=== PATIENT | male | born 1980 | race Asian ===

== ENCOUNTER 2021-03-05 15:38 | Emergency (ER) | payer OTHER ==
[~2021-03-05] VITALS: Ht 157.5 cm; Wt 71.8 kg
[2021-03-05] MEDS ORDERED: methylPREDNISolone SOD SUCC PF 125 MG/2 ML VIAL. IM ONE (16:15)
--- NOTE | 2021-03-05 16:20 | PHYS DOC ---
Past Medical History Past Surgical History: No Surgical History (ROSIE MESSINA APRN) General Adult EDM: Chief Complaint: SKIN RASH/ABSCESS HPI: HPI: Patient is a 41 year old male who presents with 4 days of contact dermatitis to the right face around her eyes swollen and reddened with some burning. He states he can see out of the right eye itself. The eye is very swollen. He als o has a contact dermatitis rash to left side of the neck onto the top of the shoulder. He went to the doctor yesterday and they gave him Zyrtec and a prednisone taper. Patient states that he is not better and the doctor told him yesterday that he should be much better. Patient states he still very itchy and is burning. He denies fever, discharge from the eye, vision loss, headache, fever, shortness of breath, wheezing, chest pain, nausea, vomiting, diarrhea. (ROSIE MESSINA APRN) Review of Systems: Review of Systems: Constitutional: Denies fever or chills. [] Eyes: Denies change in visual acuity. [] HENT: Denies nasal congestion or sore throat. +Right eye redness[] Respiratory: Denies cough or shortness of breath. [] Cardiovascular: Denies chest pain or + right eye edema. [] GI: Denies abdominal pain, nausea, vomiting, bloody stools or diarrhea. [] : Denies dysuria. [] Musculoskeletal: Denies back pain or joint pain. [] Integument: Denies rash. + Contact dermatitis rash to left neck and shoulder. + Right eye redness [] Neurologic: Denies headache, focal weakness or sensory changes. [] Endocrine: Denies polyuria or polydipsia. [] Lymphatic: Denies swollen glands. [] Psychiatric: Denies depression or anxiety. [] (ROSIE MESSINA APRN) Heart Score: C/O Chest Pain: No (ROSIE MESSINA APRN) Current Medications: Current Medications Medications (Trade) Dose Ordered Sig/Aury Start Time Stop Time Status Last Admin Dose Admin Methylprednisolone Sodium Succinate (SOLU-Medrol 125MG VIAL) 125 mg 1X ONCE 03/05/21 16:15 03/05/21 16:16 UNV (ROSIE MESSINA APRN) Allergies: Allergies: Allergies Coded Allergies Type Severity Reaction Last Updated Verified No Known Drug Allergies 03/05/21 No (ROSIE MESSINA APRN) Physical Exam: PE: Constitutional: Well developed, well nourished, no acute distress, non-toxic appearance. [] HENT: Normocephalic, atraumatic, bilateral external ears normal, oropharynx moist, no oral exudates, nose normal. Right eye swelling with redness. [] Eyes: PERRLA, EOMI, conjunctiva normal, no discharge. [] Neck: Normal range of motion, no tenderness, supple, no stridor. [] Cardiovascular:Heart rate regular rhythm, no murmur [] Lungs & Thorax: Bilateral breath sounds clear to auscultation [] Abdomen: Bowel sounds normal, soft, no tenderness, no masses, no pulsatile masses. [] Skin: Warm, dry, no erythema, no rash. Contact dermatitis to left neck [] Back: No tenderness, no CVA tenderness. [] Extremities: No tenderness, no cyanosis, no clubbing, ROM intact, no edema. [] Neurologic: Alert and oriented X 3, normal motor function, normal sensory function, no focal deficits noted. [] Psychologic: Affect normal, judgement normal, mood normal. [] (ROSIE MESSINA APRN) Current Patient Data: Vital Signs: Vital Signs Date Time Temp Pulse Resp B/P (MAP) Pulse Ox O2 Delivery O2 Flow Rate FiO2 03/05/21 15:40 97.8 108 16 119/73 (88) 97 Room Air 97.8 (ROSIE MESSINA APRN) EKG: EKG: [] (ROSIE MESSINA APRN) Radiology/Procedures: Radiology/Procedures: [] Impression: [facility] [address] [place] [address] IMAGING REPORT Signed PATIENT: ZAC ROSS ACCOUNT: [id number] : 1980 LOCATION: ER AGE: 41 SEX: M EXAM STATUS: REG ER ORD. PHYSICIAN: ROSIE MESSINA APRN REASON: orbital cellulitis PROCEDURE: CT ORBITS W/CONTRAST EXAMINATION: CT ORBITS/SELLA WITH IV CONTRAST INDICATION:41 years, Male, orbital cellulitis. COMPARISON: None. TECHNIQUE: CT of the maxillofacial region was performed following intravenous administration of contrast. Sagittal and coronal reconstructions were performed. One or more of the following dose reduction techniques were utilized: Automated exposure control (AEC), Adjustment of mA and/or kV according to patient size, Use of iterative reconstruction technique such as ASiR, CT scan done according to ALARA and image gently/image wisely FINDINGS: Right preseptal soft tissue swelling extends into the supraorbital, infraorbital and right zygomatic soft tissue. No located fluid collection to suggest abscess. The orbits and globes are intact with no postseptal involvement. No bone erosion or periosteal reaction. Mild mucosal thickening in maxillary sinuses. Remaining visualized paranasal sinuses are well-aerated. No significant periodontal disease. No acute osseous abnormalities are detected. The temporomandibular joints demonstrate normal alignment. The visualized mastoid air cells are clear. The visualized portions of the parotid glands are normal. The visualized aerodigestive tract is unremarkable. The visualized brain parenchyma is normal in attenuation. IMPRESSION: Right preseptal cellulitis extends to the supraorbital, infraorbital and right zygomatic soft tissue. Electronically signed by: Juan Carlos Escalante MD (03/05/2021 5:52 PM) [facility] DICTATED and SIGNED BY: JUAN CARLOS ESCALANTE MD DATE: 03/05/21 [id number] (ROSIE MESSINA APRN) Course & Med Decision Making: Course & Med Decision Making Pertinent Labs and Imaging studies reviewed. (See chart for details) See HPI. Alert and oriented x4. Ambulatory steady gait. Speaks in full clear sentences. Patient is given Solu-Medrol 125 mg IM. He is to continue taking the prednisone taper in the [facility]. Redness and swelling and tenderness around the right eye orbit. The eye is swollen shut. He can open it very slightly. No discharge around the eye. 3+ swelling. He shows preseptal cellulitis. Dr. De La Torre also went and saw this patient. Dr. De La Torre states patient is okay to go home. No white count. No fever. Patient be sent home on Keflex antibiotic with strict return education. [] (ROSIE MESSINA APRN) Course & Med Decision Making I personally examined this patient and agree with documentation as above. Patient with signs and symptoms suggestive of preseptal cellulitis on exam, confirmed by CT of the orbit. Patient was discharged antibiotics and given strict return precautions and advised to follow-up with ophthalmology. Jasmina De La Torre DO (JASMINA DE LA TORRE DO) Pop Disclaimer: Pop Disclaimer: This electronic medical record was generated, in whole or in part, using a voice recognition dictation system. (ROSIE MESSINA APRN) Departure Departure Impression: Primary Impression: Preseptal cellulitis Disposition: HOME / SELF CARE / HOMELESS Condition: STABLE Patient Instructions: Orbital Cellulitis Additional Instructions: Return if you cannot see out of your eye, drainage coming from your eye, increased swelling and pain, fever. Take antibiotics as prescribed and with food. Drink plenty of fluids. Continue taking all medications. Scripts Cephalexin (KEFLEX) 500 Mg Capsule 1 CAP PO QID, #40 CAP Prov: ROSIE MESSINA APRN 03/05/21 ROSIE MESSINA APRN Mar 05, 2021 16:20 JASMINA DE LA TORRE DO Mar 06, 2021 07:28
[2021-03-05] MEDS ORDERED: IV NORMAL SALINE 1000ML BAG 1,000 ML IV ONE (16:30)
[2021-03-05 16:53] LABS: BASO % 0 % (0-3); EOS % 0 % (0-3); HEMATOCRIT 41.5 % (39.0-53.0); HEMOGLOBIN 14.3 g/dL (13.0-17.5); LYMPH # 1.4 x10^3/uL (1.0-4.8); LYMPH % 16 % (24-48); MEAN CORPUSCULAR HEMOGLOBIN 29 pg (25-35); MEAN CORPUSCULAR HGB CONC 34 g/dL (31-37); MEAN CORPUSCULAR VOLUME 85 fL (79-100); MONO # 0.3 x10^3/uL (0.0-1.1); MONO % 4 % (0-9); NEUT # 7.1 x10^3/uL (1.8-7.7); NEUT % 80 % (31-73); PLATELET COUNT 250 x10^3/uL (140-400); RED BLOOD COUNT 4.87 x10^6/uL (4.30-5.70); RED CELL DISTRIBUTION WIDTH 12.7 % (11.5-14.5); WHITE BLOOD COUNT 8.9 x10^3/uL (4.0-11.0)
[2021-03-05 17:08] LABS: CALCIUM 8.5 mg/dL (8.5-10.1); GFR 81.6; POTASSIUM 3.7 mmol/L (3.5-5.1)
[2021-03-05 17:11] LABS: ALBUMIN 3.7 g/dL (3.4-5.0); ALBUMIN/GLOBULIN RATIO 0.9 (1.0-1.7); TOTAL BILIRUBIN 0.4 mg/dL (0.2-1.0); TOTAL PROTEIN 7.9 g/dL (6.4-8.2)
[2021-03-05] MEDS ORDERED: IOHEXOL 300 MG/ML 100ML VIAL. IV ONE (17:15)
[2021-03-05] MEDS ORDERED: CONTRAST GIVEN. MC PRN (17:30)
--- NOTE | 2021-03-05 17:54 | RAD ---
EXAMINATION: CT ORBITS/SELLA WITH IV CONTRAST INDICATION:41 years, Male, orbital cellulitis. COMPARISON: None. TECHNIQUE: CT of the maxillofacial region was performed following intravenous administration of contr ast. Sagittal and coronal reconstructions were performed. One or more of the following dose reduction techniques were utilized: Automated exposure control (AEC), Adjustment of mA and/or kV according to patient size, Use of iterative reconstruction technique such as ASiR, CT scan done according to ALARA and image gently/image wisely FINDINGS: Right preseptal soft tissue swelling extends into the supraorbital, infraorbital and right zygomatic soft tissue. No located fluid collection to suggest abscess. The orbits and globes are intact with no postseptal involvement. No bone erosion or periosteal reaction. Mild mucosal thickening in maxillary sinuses. Remaining visualized paranasal sinuses are well-aerated . No significant periodontal disease. No acute osseous abnormalities are detected. The temporomandibu lar joints demonstrate normal alignment. The visualized mastoid air cells are clear. The visualized portions of the parotid glands are normal. The visualized aerodigestive tract is unremarkable. The visualized brain parenchyma is normal in att enuation. IMPRESSION: Right preseptal cellulitis extends to the supraorbital, infraorbital and right zygomatic soft tissue. Electronically signed by: Anjali Escalante MD (03/05/2021 5:52 PM) [facility]
[2021-03-05] MEDS ORDERED: CEPH500C PO (18:01)
[2021-03-05 18:14] VITALS: BP 110/71
== END 2021-03-05 18:14 | disposition home or self-care (01) ==
LOC: ER 15:38
DX: L03.213 Periorbital cellulitis (principal); L25.9 Unspecified contact dermatitis, unspecified cause
CPT/HCPCS: 36415; 70481; 80053; 85025; 96360; 96361; 96372; 99285; J2930; J7030; Q9967